=== PATIENT | male | born 1980 | race Caucasian/White ===

== ENCOUNTER 2021-01-11 05:26 | Day surgery (SDC) | payer BC ==
[2021-01-05 10:50] LABS: PRE OP PROTIME 10.5 SECONDS (9.0-12.0)
[2021-01-05 10:53] LABS: ALBUMIN 4.3 G/DL (3.4-5.0); ALBUMIN/GLOBULIN RATIO 1.4 (1.1-1.5); ALKALINE PHOSPHATASE 55 IU/L (46-116); BASOPHILS # (AUTO) 0.1 X10'3 (0-0.2); BASOPHILS % (AUTO) 0.6 % (0-1); BLOOD UREA NITROGEN 11 MG/DL (7-18); CALCIUM 8.4 MG/DL (8.5-10.1); CHLORIDE 104 MMOL/L (99-107); EOSINOPHILS # (AUTO) 0.2 X10'3 (0-0.9); EOSINOPHILS % (AUTO) 1.5 % (0-6); LYMPHOCYTES # (AUTO) 3.4 X10'3 (1.1-4.8); LYMPHOCYTES % (AUTO) 32.3 % (21-51); MEAN CORPUSCULAR HEMOGLOBIN 29.7 PG (27.0-31.0); MEAN CORPUSCULAR HGB CONC 34.2 g/dL (33.0-36.5); MEAN PLATELET VOLUME 8.4 FL (7.4-10.4); MONOCYTES # (AUTO) 0.7 X10'3 (0-0.9); NEUTROPHILS # (AUTO) 6.2 X10'3 (1.8-7.7); NEUTROPHILS % (AUTO) 58.6 % (42-75); PRE OP ALT 38 U/L (30-65); PRE OP ANION GAP 9 (8-16); PRE OP AST 28 U/L (10-37); PRE OP BILIRUB, TOTAL 0.3 MG/DL (0.0-1.0); PRE OP GLUCOSE 183 MG/DL (70-104); PRE OP HEMATOCRIT 41.1 % (42.0-52.0); PRE OP PLATELET COUNT 300 X10'3 (140-440); PRE OP SODIUM 141 MMOL/L (135-145); RED BLOOD COUNT 4.72 X10'6 (4.70-6.10); TOTAL CARBON DIOXIDE 27.9 MMOL/L (24-32); TOTAL PROTEIN 7.4 G/DL (6.4-8.2); eGFR 82 ML/MIN
[2021-01-11] VITALS (16 sets, daily range): BP systolic 134–153; BP diastolic 87–97
[~2021-01-11] VITALS: Ht 172.7 cm; Wt 95.1 kg
[~2021-01-11 05:26] MED LIST: ASPI-1107 PO; BIOT5000 PO; CHOL10008 PO; METF-950 PO; MULT-1085 PO; OMEG1CAP13 PO; OMEP-50 PO; SERT-433 PO; SIMV-45 PO; ringers solution, lacted 1,000 ML IV SCH
[2021-01-11] MEDS ORDERED: cefazolin/dext.iso 2gm/100ml IV ONE (05:30)
[2021-01-11] MEDS ORDERED: famotidine 20mg tablet PO ONE (05:30)
[2021-01-11] MEDS ORDERED: bacitracin 15gm ointment TP ONE (06:48)
[2021-01-11] MEDS ORDERED: LIDOcaine 1% 30ml preserv. free vial ONE ×2 (06:48→09:19)
[2021-01-11] MEDS ORDERED: BUPIVAcaine 0.5% inj/PF 30 ML ONE ×3 (06:49→09:19)
[2021-01-11] MEDS ORDERED: fentaNYL/PF 50MCG/1 ML 2ML syringe ONE (07:26)
[2021-01-11] MEDS ORDERED: propofol inj 20 ML IV ONE (07:27)
[2021-01-11] MEDS ORDERED: midazolam 1 mg/ML 2ml injection ONE (07:27)
[2021-01-11] MEDS ORDERED: rocuronium 10mg/ml inj IV ONE ×2 (07:28→07:31)
[2021-01-11] MEDS ORDERED: sevoflurane 250ml liquid IH ONE (07:31)
[2021-01-11] MEDS ORDERED: ringers solution, lacted 1,000 ML IV SCH (08:25)
[2021-01-11] MEDS ORDERED: ondansetron/PF 4mg/2ml inj IV PRN (08:25)
[2021-01-11] MEDS ORDERED: labetalol 20mg/4ml (5mg/ml) syringe IV PRN (08:25)
[2021-01-11] MEDS ORDERED: meperidine/PF 25mg/ml syringe IV PRN ×3 (08:25)
[2021-01-11] MEDS ORDERED: morphine 4 MG/ML inj SYRINge IV PRN (08:25)
[2021-01-11] MEDS ORDERED: proCHLORperazine 10 MG/2 ml inj IV PRN (08:25)
[2021-01-11] MEDS ORDERED: morphine 2 MG/ML inj. syringe IV PRN (08:25)
[2021-01-11] MEDS ORDERED: dexamethasone sod phosphate 4mg/ml inj. ONE (10:41)
[2021-01-11] MEDS ORDERED: ondansetron/PF 4mg/2ml inj ONE (10:41)
[2021-01-11] MEDS ORDERED: neostigmine methylsulfate 1 MG/ML 10ml vial ONE (11:00)
[2021-01-11] MEDS ORDERED: glycopyrrolate 0.2mg/ml inj ONE (11:05)
--- NOTE | 2021-01-11 11:19 | NUR ---
Received from OR via ROS, accompanied by Anesthesiologist DR RIGGINS and report given by Anesthesiologist. PT DROWSY, DENIES PAIN, ABDOMEN W4/LAP SITES W/DERMABOND CDI, MESH UNDER HAN COVERING GAUZE ARLENE COVERING PENIS CDI. Addendum: 01/11/21 at 1153 by Lor Da Silva RN Amended: Links added.
[2021-01-11] MEDS ORDERED: oxyCODONE/APAP 5-325mg tablet PO PRN (11:35)
--- NOTE | 2021-01-11 14:09 | NUR ---
PT BLADDER SCANNED FOR 367 ML URINE, ATTEMPTED VOID X 2 W/SMALL DRIBBLES OF URINE. D/C INSTRUCTIONS GIVEN AND GONE OVER W/PT WHO VERBALIZED UNDERSTANDING. PT SENT TO PAS UNIT FOR FURTHER TIME TO SEE IF HE CAN VOID BEFORE PLACING A CATHETER. REPORT TO RECEIVING RN GURWINDER. Addendum: 01/11/21 at 1500 by Lor Da Silva RN Amended: Links added.
--- NOTE | 2021-01-11 14:50 | NUR ---
PT STATES UNCOMFORTABLE AND UNABLE TO VOID, ATTEMPT TO PLACE A REESE, UNABLE TO PLACE TUBE INTO BLADDER DT RESISTANCE PT C/O PAIN, PULL REESE CATH TUBE OUT PT GOT UP TO BATHROOM VOID CLEAR YELLOW URINE WITHOUT DIFF. STATES FEELS MUCH BETTER. REINFORCED DC INSTR GIVEN BY CHRIS LANE PACU. PT STATES READY TO GO HOME. IV DC AND WC PT DOWN TO CAR, REINFORCED DC INSTR WITH . INSTR IF PT UNABLE TO VOID AT HOME TO RETURN TO THE ED STATES UNDERSTANDING. NO OTHER DISTRESS, MEETS CRITERIA TO GO HOME. Addendum: 01/11/21 at 1514 by Lurdes Segura RN Amended: Links added.
== END 2021-01-11 14:59 | disposition home or self-care (01) ==
LOC: PAS 05:26
PROVIDERS: ATTEND Surgery
DX: Z30.2 Encounter for sterilization (principal); N43.2 Other hydrocele; K43.6 Other and unspecified ventral hernia with obstruction, without gangrene; K42.0 Umbilical hernia with obstruction, without gangrene; K40.20 Bilateral inguinal hernia, without obstruction or gangrene, not specified as recurrent; E78.5 Hyperlipidemia, unspecified; F32.9 Major depressive disorder, single episode, unspecified; F41.9 Anxiety disorder, unspecified; K21.9 Gastro-esophageal reflux disease without esophagitis; E11.9 Type 2 diabetes mellitus without complications; E66.9 Obesity, unspecified; Z68.31 Body mass index [BMI] 31.0-31.9, adult; Z79.899 Other long term (current) drug therapy; Z87.891 Personal history of nicotine dependence; Z98.890 Other specified postprocedural states; Z20.822 Contact with and (suspected) exposure to COVID-19; Z79.01 Long term (current) use of anticoagulants
CPT/HCPCS: 36415; 49561; 49568; 49587; 49650; 55040; 55250; 80053; 82948; 85025; 85610; 85730; 93005; C1758; C1781; J0780; J1100; J2001; J2175; J2250; J2405; J2704; J2710; J3010; J7120; S2900; U0003; U0005; Z7506; Z7508; Z7512; A4215; A4618; A7000; J3490

== ENCOUNTER 2023-04-19 19:23 | Emergency (ER) | payer BC ==
[~2023-04-19] VITALS: Ht 167.6 cm; Wt 88.6 kg
[~2023-04-19 19:23] MED LIST changes: +METF-1203 PO; -METF-950 PO; +OMEG-45 PO; -OMEG1CAP13 PO; -OMEP-50 PO; +OMEP20CA16 PO; -ringers solution, lacted 1,000 ML IV SCH
[2023-04-19] MEDS ORDERED: TETanus/Pertussis (Acell)/Diphther VAC/PF (Tdap-Adult) 0.5ml syringe IMVAC ONE (20:15)
[2023-04-19] MEDS ORDERED: CefTRIAXone/D5W-Rocephin 1gm 50 ML IV ONE (20:15)
--- NOTE | 2023-04-19 20:15 | NUR ---
I have reviewed and agree with assessment performed and documented by MACARIO CURRIE)
[2023-04-19] MEDS ORDERED: NAPR-56 PO (20:20)
[2023-04-19] MEDS ORDERED: AMOX-580 PO (20:20)
[2023-04-19 21:03] VITALS: BP 117/77; PULSE 96; RESP 17; O2SAT 96
[2023-04-19 21:10] VITALS: TEMP 98.4
== END 2023-04-19 21:11 | disposition home or self-care (01) ==
LOC: ER 19:23
DX: S61.432A Puncture wound without foreign body of left hand, initial encounter (principal); Z79.82 Long term (current) use of aspirin; Z79.84 Long term (current) use of oral hypoglycemic drugs; Z79.899 Other long term (current) drug therapy; W55.01XA Bitten by cat, initial encounter; Y93.89 Activity, other specified; Y92.89 Other specified places as the place of occurrence of the external cause; Y99.8 Other external cause status; M79.642 Pain in left hand
CPT/HCPCS: 90471; 90715; 96365; 99284; J0696